=== PATIENT | female | born 1990 | race Caucasian/White ===

== ENCOUNTER 2021-06-20 16:23 | Inpatient (IN) | payer OTHER ==
[~2021-06-20] VITALS: Ht 167.6 cm; Wt 103.4 kg
[2021-06-20 16:56] LABS: HEMOGLOBIN 13.6 gm/dl (12.3-15.3); RED BLOOD COUNT 4.08 M/UL (4.00-5.10); WHITE BLOOD COUNT 10.6 K/UL (4.5-11.0)
[2021-06-20] MEDS ORDERED: PRENATAL VITAM1 EAC6 PO (17:56)
[2021-06-20] MEDS ORDERED: TYLENOL325 MG PO (17:56)
[2021-06-22 06:41] LABS: HEMOGLOBIN 11.5 gm/dl (12.3-15.3)
[2021-06-22] MEDS ORDERED: HYDROCODON-ACE1 EAC4 PO (11:01)
[2021-06-22] MEDS ORDERED: DOCUSATE SODIU100 MG PO (11:01)
[2021-06-22] MEDS ORDERED: IBUPROFEN600 MG PO (11:01)
== END 2021-06-22 16:58 | disposition home or self-care (01) | DRG 807 ==
LOC: GENOP 16:23 → OB 16:43
PROVIDERS: ADMIT Obstetrics & Gynecology
PROC: 10E0XZZ Delivery of Products of Conception, External Approach (ICD-10-PCS; principal; 2021-06-22)
PROC: 0HQ9XZZ Repair Perineum Skin, External Approach (ICD-10-PCS; 2021-06-22)
PROC: 4A1HXCZ Monitoring of Products of Conception, Cardiac Rate, External Approach (ICD-10-PCS; 2021-06-22)
PROC: 3E033VJ Introduction of Other Hormone into Peripheral Vein, Percutaneous Approach (ICD-10-PCS; 2021-06-22)
PROC: 10907ZC Drainage of Amniotic Fluid, Therapeutic from Products of Conception, Via Natural or Artificial Opening (ICD-10-PCS; 2021-06-22)
DX: O70.0 First degree perineal laceration during delivery (principal); Z37.0 Single live birth; Z3A.39 39 weeks gestation of pregnancy; O75.89 Other specified complications of labor and delivery; Z20.822 Contact with and (suspected) exposure to COVID-19
CPT/HCPCS: 36415; 51702; 76818; 81001; 82800; 85014; 85018; 85025; J2210; J2590; J7120